=== PATIENT | female | born 1990 | race American Indian/Alaskan Native ===

== ENCOUNTER 2021-02-16 16:44 | Emergency (ER) | payer SELFPAY ==
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
[2021-02-16 20:32] VITALS: BP 107/64
--- NOTE | 2021-02-16 21:03 | Cat Scan Report ---
CT BRAIN: 02/16/2021 INDICATION / CLINICAL INFORMATION: head injury. COMPARISON: None available. FINDINGS: BRAIN/INTRACRANIAL STRUCTURES: Unenhanced CT images of the brain demonstrate no evidence of acute int racranial abnormality. Ventricles and sulci are normal in size and shape. There is no evidence of intracranial hemorrhage or mass. There are no abnormal extra-axial fluid rani ections. Incidental note is made of anterior frontal scalp swelling and hematoma. EXTRACRANIAL STRUCTURES: Unremarkable. IMPRESSION: No acute intracranial abnormality. Scalp injury noted. All CT scans at this location are performed using dose reduction to ALARA by means of automated expos ure control. Signer Name: Aubrey Reaves MD Signed: 02/16/2021 8:58 PM Workstation Name: [id number]
--- NOTE | 2021-02-16 21:06 | Cat Scan Report ---
CT CERVICAL SPINE: INDICATION / CLINICAL INFORMATION: Trauma. COMPARISON: None available. FINDINGS: CT images of the cervical spine were obtained. Images are evaluated in the axial, coronal, and sagitt al planes. There is no evidence of acute abnormality. Vertebral body alignment and height is normal. There is no evidence of osseous canal or foraminal narrowing. CRANIOCERVICAL JUNCTION: Unremarkable. PARASPINAL STRUCTURES: Unremarkable IMPRESSION: No significant abnormality. All CT scans at this location are performed using dose reduction to ALARA by means of automated expos ure control. Signer Name: Aubrey Reaves MD Signed: 02/16/2021 9:01 PM Workstation Name: [id number]
--- NOTE | 2021-02-16 21:08 | Cat Scan Report ---
CT FACIAL 02/16/2021 HISTORY: Trauma. FINDINGS: CT images of the facial bones were obtained. Images are evaluated in the axial, coronal, an d sagittal plane. Soft tissue swelling is present over the forehead and extending down towards the bridge of the nose. There is flattening and irregularity of the upper aspect of the nasal bones. Separation is present ne ar the base of the left nasal nasal bone, which may be part of the acute process as well. Paranasal sinuses are clear. Orbital structures are intact. IMPRESSION: Flattening and irregularity of the nasal bones consistent with acute nasal bone fractures . Overlying soft tissue swelling is present. All CT scans at this location are performed using dose reduction to ALARA by means of automated expos ure control. Signer Name: Aubrey Reaves MD Signed: 02/16/2021 9:03 PM Workstation Name: [id number]
== END 2021-02-16 22:09 | disposition home or self-care (01) ==
LOC: ED 16:44
DX: S16.1XXA Strain of muscle, fascia and tendon at neck level, initial encounter (principal); S05.12XA Contusion of eyeball and orbital tissues, left eye, initial encounter; S09.90XA Unspecified injury of head, initial encounter; Y04.8XXA Assault by other bodily force, initial encounter; Y93.89 Activity, other specified; Y92.89 Other specified places as the place of occurrence of the external cause; Y99.8 Other external cause status
CPT/HCPCS: 36415; 70450; 70486; 72125; 84702; 99283